=== PATIENT | female | born 1990 | race Caucasian/White ===

== ENCOUNTER → 2016-10-29 | Outpatient (CLI) | payer BC ==
[~2016-10-29] VITALS: Ht 165.1 cm; Wt 30.0 kg
[~2016-10-29] MED LIST: ACYCLOVIR400 MG PO; ENDOCET 5-3251 EACH PO; IBUPROFEN800 MG PO; Motrin PO; PRENATAL TABLE1 EAC3 PO
[2016-10-29 15:51] VITALS: BP 115/69
== END | disposition home or self-care (01) ==
LOC: IVINF 15:27
DX: Z31.82 Encounter for Rh incompatibility status (principal); Z3A.00 Weeks of gestation of pregnancy not specified
CPT/HCPCS: 96372; J2790